=== PATIENT | female | born 1995 | race Caucasian/White ===

== ENCOUNTER 2017-07-17 22:51 | Inpatient (IN) | payer BC, OTHER ==
[~2017-07-17] VITALS: Ht 175.3 cm; Wt 74.6 kg
[2017-07-17 23:31] LABS: HEMATOCRIT 39.2 % (37-47); MEAN CORPUSCULAR HEMOGLOBIN 30.4 pg (25-34); MEAN CORPUSCULAR HGB CONC 33.4 g/dl (32-36); MEAN PLATELET VOLUME 9.2 fL (7.4-10.4); PLATELET COUNT 306 K/uL (130-400); RED BLOOD COUNT 4.31 M/uL (4.2-5.4); WHITE BLOOD COUNT 5.71 K/uL (4.8-10.8)
[2017-07-17 23:32] LABS: URINE APPEARANCE CLEAR (CLEAR); URINE BILIRUBIN NEG (NEG); URINE COLOR YELLOW; URINE NITRITE NEG (NEG); URINE SPECIFIC GRAVITY 1.027 (1.000-1.030); UROBILINOGEN NEG (NEG)
[2017-07-17 23:36] LABS: MANUAL MICROSCOPIC REQUIRED? NO; REVIEW REQ? NO
[2017-07-17 23:49] LABS: ALT/SGPT 15 U/L (12-78); BLOOD UREA NITROGEN 10 mg/dl (7-18); BUN/CREATININE RATIO 10.8 (10-20); CALCIUM 8.1 mg/dl (8.5-10.1); CARBON DIOXIDE 25 mmol/L (21-32); CHLORIDE 107 mmol/L (98-107); CREATININE 0.94 mg/dl (0.60-1.20); GLUCOSE 81 mg/dl (70-99); POTASSIUM 3.5 mmol/L (3.5-5.1); SODIUM 139 mmol/L (136-145)
[2017-07-18] LABS: ALKALINE PHOSPHATASE 48 U/L (45-117); AST/SGOT 17 U/L (15-37)
[2017-07-18 00:03] LABS: BENZODIAZEPINE, URINE NEG (NEG); COCAINE,URINE NEG (NEG); PHENCYCLIDINE, URINE NEG (NEG)
[2017-07-18 00:06] LABS: ACETAMINOPHEN 4 ug/ml (10-30)
[2017-07-18] MEDS ORDERED: VENL75CA73 PO (00:26)
[2017-07-18] MEDS ORDERED: OMEP40CA41 PO (00:26)
[2017-07-18] MEDS ORDERED: B-COTAB18 PO (00:28)
[2017-07-18] MEDS ORDERED: LEVOTAB6 PO (00:28)
[2017-07-18] MEDS ORDERED: TRAZ50TA35 PO (00:29)
[2017-07-18] MEDS ORDERED: ONDA4TAB46 PO (00:29)
[2017-07-18] MEDS ORDERED: FRCT/ PO ×2 (00:29)
--- NOTE | 2017-07-18 00:37 | EMERGENCY ROOM VISIT NOTE ---
History Report prepared by Joie: Megan Noguera Under the Supervision of: Dr. Liberty Wells D.O. First contact with patient: 23:07 Chief Complaint: PSYCHIATRIC PROBLEMS Stated Complaint: TYLENOL OVERDOSE,NAUSEA,ABD PAIN,CONFUSION,SHAKING History of Present Illness The patient is a 22 year old female who presents to the Emergency Room with complaints of an episode of overdose around 1600 today. The patient admits to taking eleven 500 mg Tylenol around 1600 today. She states she was feeling upset at the time and was just hoping to go to sleep. She has been worried about rent money and being a bother to her boyfriend. She had some abdominal pain after the overdose which has resolved. She is currently nauseous. She denies any leg cramping or swelling. She denies any alcohol or other drug use. She also notes she has been taking Tylenol regularly. She took 3000 mg 5 days ago for the worst headache she has ever had. She was recently prescribed Fioricet. She has been taking 2000 mg of Tylenol regularly. She has a history of depression. She has cut herself in the past. She cut herself 2 days ago. She denies any previous attempts at killing herself. She has not had inpatient psychiatric care before. Her last menstrual period was 3 months ago. She is on Seasonique. She has a history of duodenal stenosis. She is on omeprazole. She lives locally and works as a [employer]. She lives with a roommate. Source of History: patient Onset: 1600 today Position: other (global) Symptom Intensity: 5500 mg Tylenol Quality: other (overdose) Timing: other (episodic) Associated Symptoms: + nausea, + abdominal pain (resolved) Note: Pt denies leg cramping/swelling. Review of Systems See HPI for pertinent positives & negatives. A total of 10 systems reviewed and were otherwise negative. Past Medical & Surgical Medical Problems: (1) Depression (2) Duodenal stenosis (3) Major depressive disorder, recurrent episode, severe with anxious distress Family History No pertinent family history stated. Social History Smoking Status: Never Smoker Alcohol Use: none Drug Use: none Marital Status: in relationship Housing Status: lives with roommate Occupation Status: employed Current/Historical Medications Scheduled B-Complex Vitamins (Vitamin B Complex), 1 TAB PO DAILY Levonorgestrel-Ethinyl Estradi (Seasonique), 1 TAB PO DAILY Omeprazole (Prilosec), 40 MG PO DAILY Trazodone Hcl (Trazodone), 50-100 MG PO HS Venlafaxine Hcl (Venlafaxine Extended Rel), 150 MG PO DAILY Scheduled PRN Acetamin/Butalbital/Caffeine (Fioricet), 1 TAB PO Q4 PRN for Headache Acetamin/Butalbital/Caffeine (Fioricet), 2 TAB PO Q6 PRN for Headache Ondansetron Hcl (Zofran), 4 MG PO Q8 PRN for Nausea Allergies Coded Allergies: No Known Allergies (Unverified , 07/18/17) Physical Exam Vital Signs Date Time Temp Pulse Resp B/P (MAP) Pulse Ox O2 Delivery O2 Flow Rate FiO2 07/17/17 23:02 36.8 80 18 145/96 96 Room Air Physical Exam HEENT: Head - normocephalic and atraumatic Pupils are equal, round, and reactive to light. Extraocular eye muscles are intact, and sclera are anicteric. Nose - moist nasal mucosa without discharge. Mouth - moist buccal mucosa. Oropharynx is nonerythematous and there is no tonsillar exudate or edema noted. Neck: Supple; no JVD, nuchal rigidity, cervical lymphadenopathy. Heart: Regular rate and rhythm. There is a normal S1 and S2 with no murmurs, clicks, or gallops appreciated. Lungs: Clear to auscultation bilaterally with no wheezes, rales, or rhonchi. Abdomen: Soft, completely nontender, nondistended, with good bowel sounds. There are no palpable pulsatile masses or hepatosplenomegaly. There is no guarding, rigidity, or rebound noted. Extremities: No evidence of cyanosis, clubbing, or edema. There are easily palpable peripheral pulses. Skin: Pale. Warm and dry with good turgor and no rashes. Psych: Appears depressed, slightly anxious. Admits to self mutilation and overdose. Medical Decision & Procedures Laboratory Results 07/17/17 23:23 07/17/17 23:23 Test 07/17/17 23:10 07/17/17 23:23 Urine Color YELLOW Urine Appearance CLEAR (CLEAR) Urine pH 7.0 (4.5-7.5) Urine Specific [place] 1.027 (1.000-1.030) Urine Protein NEG (NEG) Urine Glucose (UA) NEG (NEG) Urine Ketones NEG (NEG) Urine Occult Blood NEG (NEG) Urine Nitrite NEG (NEG) Urine Bilirubin NEG (NEG) Urine Urobilinogen NEG (NEG) Urine Leukocyte Esterase NEG (NEG) Urine Test NEG (NEG) Urine Opiates Screen NEG (NEG) Urine Methadone, Qualitative NEG (NEG) Urine Barbiturates POS (NEG) Urine Phencyclidine (PCP) Level NEG (NEG) Ur Amphetamine/Methamphetamine NEG (NEG) MDMA (Ecstasy) Screen NEG (NEG) Urine Benzodiazepines Screen NEG (NEG) Urine Cocaine Metabolite NEG (NEG) Urine Marijuana (THC) NEG (NEG) Red Blood Count 4.31 M/uL (4.2-5.4) Mean Corpuscular Volume 91.0 fL (80-100) Mean Corpuscular Hemoglobin 30.4 pg (25-34) Mean Corpuscular Hemoglobin Concent 33.4 g/dl (32-36) RDW Standard Deviation 42.9 fL (36.4-46.3) RDW Coefficient of Variation 12.9 % (11.5-14.5) Mean Platelet Volume 9.2 fL (7.4-10.4) Anion Gap 7.0 mmol/L (3-11) Est Creatinine Clear Calc Drug Dose 97.3 ml/min Estimated GFR () 99.1 Estimated GFR (Non- 85.5 BUN/Creatinine Ratio 10.8 (10-20) Calcium Level 8.1 mg/dl (8.5-10.1) Total Bilirubin 0.2 mg/dl (0.2-1) Direct Bilirubin < 0.1 mg/dl (0-0.2) Aspartate Amino Transf (AST/SGOT) 17 U/L (15-37) Alanine Aminotransferase (ALT/SGPT) 15 U/L (12-78) Alkaline Phosphatase 48 U/L (45-117) Total Protein 7.4 gm/dl (6.4-8.2) Albumin 3.9 gm/dl (3.4-5.0) Thyroid Stimulating Hormone (TSH) 3.090 uIu/ml (0.300-4.500) Salicylates Level < 1.7 mg/dl (2.8-20) Ethyl Alcohol mg/dL < 3.0 mg/dl (0-3) Laboratory results per my review. ED Course 2325: The patient was evaluated in room A5. A complete history and physical examination were performed. Nursing notes and previous electronic medical records were reviewed. Labs were drawn as above. A urine specimen was obtained. 0050: The patient is resting comfortably at this time. The dependency case manager speaking with the patient. 0130: The patient was evaluate a by staff from [address]. 0201: The patient has been accepted to [address] [place] [address]. She is voluntary. Medical Decision The patient is a 22 year old female who presents to the ED with overdose. Differential diagnosis includes depression, suicide attempt, Tylenol overdose, mood disorder. Labs: normal renal function and glucose, normal LFTs and TSH, negative alcohol, aspirin <1.7, acetaminophen 4, tox screen positive for barbiturates, normal white count, stable H&H, urine negative, urinalysis normal. This is a 22-year-old female patient with a history of depression and self mutilation. She explains that she took an overdose tonight because she was upset and was hoping that she would just go to sleep. I was concern for this type of behavior. The patient is willing to admit herself voluntarily for inpatient psychiatric care. As for the Tylenol overdose. The patient had been taking Tylenol on a daily basis and therapeutic dose. However, today, she took an increased dose which does not appear to be toxic at this time. Her Tylenol level was 4 greater than 8 hours after the ingestion. Medication Reconcilliation Current Medication List: was personally reviewed by me Blood Pressure Screening Patient's blood pressure: Elevated blood pressure Blood pressure disposition: Elevated BP felt to be situational Impression Primary Impression: Tylenol overdose Additional Impression: Suicide attempt Scribe Attestation The scribe's documentation has been prepared under my direction and personally reviewed by me in its entirety. I confirm that the note above accurately reflects all work, treatment, procedures, and medical decision making performed by me. Departure Information Dispostion Mental Health Acute Care Referrals Mira Dubon (PCP) Patient Instructions My [facility] Problem Qualifiers Primary Impression: Tylenol overdose Encounter type: initial encounter Injury intent: intentional self-harm Qualified Codes: T39.1X2A - Poisoning by 4-aminophenol derivatives, intentional self-harm, initial encounter
[2017-07-18] MEDS ORDERED: NURSING VERBAL MED ORDER ONE ×2 (01:15→23:00)
[2017-07-18 01:48] VITALS: BP 145/96; PULSE 82; TEMP 36.8
[2017-07-18 02:13] VITALS: O2SAT 100
[2017-07-18] MEDS ORDERED: ACETAMINOPHEN 325 MG TAB PO PRN (02:45)
[2017-07-18] MEDS ORDERED: MAGNESIUM HYDROXIDE SUSP 30 ML UDC PO PRN (02:45)
[2017-07-18] MEDS ORDERED: ALUMINUM/MAGNESIUM SUSP 30 ML UDC PO PRN (02:45)
[2017-07-18] MEDS ORDERED: SODIUM CHLORIDE 0.65% NA SOLN 45 ML (OCEAN) PRN (02:45)
[2017-07-18] MEDS ORDERED: BISMUTH SUBSALICYLATE PER ML OMNICELL CHARGE PO PRN (02:45)
[2017-07-18] MEDS ORDERED: hydrOXYzine HCL 25 MG TAB PO PRN ×2 (02:45)
[2017-07-18] MEDS: TRAZODONE HCL 50 MG TAB PO SCH ×2 (02:51→21:18)
[2017-07-18 04:09] VITALS: Ht 175.3 cm; Wt 74.6 kg
[2017-07-18 06:50] VITALS: BP_SYST 115; BP_SYST 121; BP_DIAS 75; BP_DIAS 87; PULSE 74; PULSE 99; TEMP 37
[2017-07-18] MEDS ORDERED: VENLAFAXINE HCL XR 150 MG CAPXR PO SCH (09:00)
--- NOTE | 2017-07-18 11:04 | Psychiatric History & Physical ---
History Date of Service Jul 18, 2017. Identifying Data Brenna Julien is a 22-year-old female who currently lives in [facility], who was brought to the emergency room by her roommate yesterday after ingesting 11 500 mg Tylenol pills. She admits to depression and suicidal ideation. She is admitted voluntarily. Information is gathered from the patient and considered to be reliable. Chief Complaint "I just wanted to numb myself.". History of Present Illness Nancy Godinez MS3 is present for the interview. The patient believes she has been depressed since she was a child with a significant worsening during her sophomore year in college. She denies any specific precipitant to the word sitting in college other than to say that her schoolwork was difficult and she had very few friends. She did not receive treatment for her depression until August of this year when she went to her PCP, Dr. Mira Dubon, who initially tried her on Zoloft. She was on this for several months, but didn't think it helped and thinks it may have increased suicidal ideation. She then traveled her on Lexapro for about 1 month up to a dose of 15 mg which the patient thought worsened her anxiety. She was then tried on Effexor which she has been on for the last several weeks at 150 mg in the patient believes that she is experiencing an affective blunting which she does not like. 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 She graduated in December with a degree in geology. She has had some work stress, other primary pharmacist having been out for surgery requiring temporary help. She also has financial stress from school bills. Her stressors have been piling up and now the holiday season approaches. Her parents are depressed, she doesn't feel particularly close to either and doesn' t necessarily want to go home for the holidays. She has been cutting more regularly with last event 2 days ago, having cut on both of her thighs and her left wrist. Yesterday when she felt like things were piling up, she took the 11th 500 mg Tylenol, denying that she wanted to but saying that she just wanted to "numb myself". At the same time, she has been having suicidal thoughts, but denies any specific plan or intent. After taking the overdose, she tried to induce vomiting with little effect. She then had her roommate bring her to the ER. Today she continues to experience depression but denies any acute suicidal ideation. She reports chronic anxiety with a history of panic attacks that are usually triggered by stress at work. She reports a good appetite, stable weight. She has not been socializing as much lately as she normally would. She is sleeping more, getting 8-10 hours per night but still feeling fatigued and not rested during the day. She has low motivation but does get to work on a daily basis. She has interest in her friends and her boyfriend. She denies ever having had any auditory or visual hallucinations. She denies any discrete episodes of euphoric mood, sleeplessness or pleasure seeking behaviors that would be congruent with a bipolar disorder. She denies any symptoms of eating disordered behaviors. Past Psychiatric History Current OP Treatment: no current treatment (meds from PCP) Prior OP Treatment: no prior treatment Prior Psych Hospitalizations: none Access to a Gun: No Suicide Attempts: No Past Medication Trials 1. Zoloft- not helpful, increased SI 2. Lexapro- increased anxiety Past Medical/Surgical History History of Concussion/Seizure: No (1) Duodenal stenosis Allergies Allergies: Coded Allergies: No Known Allergies (Unverified , 07/18/17) Home Medications Scheduled B-Complex Vitamins (Vitamin B Complex), 1 TAB PO DAILY Levonorgestrel-Ethinyl Estradi (Seasonique), 1 TAB PO DAILY Omeprazole (Prilosec), 40 MG PO DAILY Trazodone Hcl (Trazodone), 50-100 MG PO HS Venlafaxine Hcl (Venlafaxine Extended Rel), 150 MG PO DAILY Scheduled PRN Acetamin/Butalbital/Caffeine (Fioricet), 1 TAB PO Q4 PRN for Headache Acetamin/Butalbital/Caffeine (Fioricet), 2 TAB PO Q6 PRN for Headache Ondansetron Hcl (Zofran), 4 MG PO Q8 PRN for Nausea Family History History of Suicide: No History of Substance Abuse: No Psychiatric History: Yes (uncle with schizophrenia, sister with depression and anxiety) Alcohol Use Alcohol Use In Past 12 Months: No AUDIT Total Score: 1 Smoking Use Smoking Status: Never Smoker Substance History Denies the use of illicit substances Personal History [place] Childhood: Grew up in [place]. Raised by mother and father until they . She has 2 sisters. 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 Relationship History: never , other (has been with her current boyfriend for 3 months) Children: none Spiritual Affiliation: none Legal History: none Psychological Trauma History: Denies Hx Traumatic Event Review of Systems Constitutional: malaise Eyes: denies: no symptoms, as stated in HPI, eye pain, tearing, itching, redness, discharge, double vision, visual changes, blurred vision, photophobia, other ENT: denies: no symptoms reported, see HPI, ear pain, ear discharge, loss of hearing, tinnitus, nasal pain, nasal congestion, rhinorrhea, epistaxis, sore throat, stidor, throat swelling, mouth pain, mouth swelling, dental pain, gum swelling, other Cardiovascular: denies: no symptoms reported, see HPI, chest pain, chest tightness, chest pressure, diaphoresis, palpitations, syncope, other Respiratory: denies: no symptoms reported, see HPI, cough, orthopnea, short of breath, stridor, wheezing, sputum production, cyanosis, MEEKS, PND, other Gastrointestinal: constipation (associated with duodenal stenosis), nausea ( with headaches) Genitourinary - Female: denies: no symptoms, see HPI, rash, amenorrhea, dysmenorrhea, menorrhagia, metrorrhagia, , vaginal bleeding, vaginal itching, vaginal discharge, vulvadynia, other Musculoskeletal: denies no symptoms reported, denies see HPI, denies back pain , denies gout, denies joint pain, denies joint swelling, denies muscle pain, denies muscle stiffness, denies neck pain, denies other Integumentary: other (multiple superficial cuts to left wrist and bilateral dorsal thighs) Neurologic: denies: no symptoms, see HPI, headache, numbness, paresthesias, pre -existing deficit, seizure, tingling, tremors, general weakness, tics, focal weakness, vertigo, lethargy, memory loss, dizziness, other Endocrine: denies: no symptoms, as stated in HPI, cold intolerance, heat intolerance, hair changes, goiter, polydipsia, polyuria, skin changes, other Hematologic / Lymphatic: denies: no symptoms, as stated in HPI, abnormal clotting, adenopathy, anemia, easy bleeding, easy bruising, gums bleeding, petechiae, other Examination Physical Examination Exam performed by Dr. Skinner in the emergency department yesterday has been reviewed and accepted his medical clearance for our unit Vital Signs Vital Signs Past 12 Hours Date Time Temp Pulse Resp B/P (MAP) Pulse Ox O2 Delivery O2 Flow Rate FiO2 07/18/17 06:50 37.0 74 16 115/75 99 121/87 07/18/17 02:13 62 137/93 100 07/18/17 01:48 36.8 82 18 145/96 07/17/17 23:02 36.8 80 18 145/96 96 Room Air Laboratory Results Last 24 Hours Test 07/17/17 23:10 07/17/17 23:23 07/18/17 08:56 Urine Color YELLOW Urine Appearance CLEAR Urine pH 7.0 Urine Specific [place] 1.027 Urine Protein NEG Urine Glucose (UA) NEG Urine Ketones NEG Urine Occult Blood NEG Urine Nitrite NEG Urine Bilirubin NEG Urine Urobilinogen NEG Urine Leukocyte Esterase NEG Urine Test NEG Urine Opiates Screen NEG Urine Methadone, Qualitative NEG Urine Barbiturates POS Urine Phencyclidine (PCP) Level NEG Ur Amphetamine/Methamphetamine NEG MDMA (Ecstasy) Screen NEG Urine Benzodiazepines Screen NEG Urine Cocaine Metabolite NEG Urine Marijuana (THC) NEG White Blood Count 5.71 K/uL Red Blood Count 4.31 M/uL Hemoglobin 13.1 g/dL Hematocrit 39.2 % Mean Corpuscular Volume 91.0 fL Mean Corpuscular Hemoglobin 30.4 pg Mean Corpuscular Hemoglobin Concent 33.4 g/dl RDW Standard Deviation 42.9 fL RDW Coefficient of Variation 12.9 % Platelet Count 306 K/uL Mean Platelet Volume 9.2 fL Sodium Level 139 mmol/L Potassium Level 3.5 mmol/L Chloride Level 107 mmol/L Carbon Dioxide Level 25 mmol/L Anion Gap 7.0 mmol/L Blood Urea Nitrogen 10 mg/dl Creatinine 0.94 mg/dl Est Creatinine Clear Calc Drug Dose 97.3 ml/min Estimated GFR () 99.1 Estimated GFR (Non- 85.5 BUN/Creatinine Ratio 10.8 Random Glucose 81 mg/dl Calcium Level 8.1 mg/dl Total Bilirubin 0.2 mg/dl Direct Bilirubin < 0.1 mg/dl Aspartate Amino Transf (AST/SGOT) 17 U/L Alanine Aminotransferase (ALT/SGPT) 15 U/L Alkaline Phosphatase 48 U/L Total Protein 7.4 gm/dl Albumin 3.9 gm/dl Thyroid Stimulating Hormone (TSH) 3.090 uIu/ml Salicylates Level < 1.7 mg/dl Acetaminophen Level 4 ug/ml < 2 ug/ml Ethyl Alcohol mg/dL < 3.0 mg/dl Mental Examination During interview pt is: alert and oriented, cooperative (he) Appearance: appropriately dressed, appropriately groomed Eye contact is: good Motor behavior is: steady gait & station, no abnormal motor movements Speech: normal in rate, rhythm & volume Affect: depressed, tearful Mood is: depressed Thought process: goal directed Thought content: reality based without delusions Suicidal thought are: present, Plan: denied, Intent: denied Homicidal thoughts are: denied Hallucinations: denies auditory, denies visual Cognition: memory grossly intact, attention grossly intact, language grossly intact Intelligence estimated to be: average Insight: excellent, impaired Judgement: impaired Impression / Recommendations Impression 22-year-old woman with severe depression admitted voluntarily after toxic ingestion of 5500 mg of Tylenol. No apparent impact on her liver and did not require acetylcysteine. She has some generalized stress but no acute stressor precipitating this, just wanting to feel numb from her emotional pain. It sounds as if her trial of Zoloft was good but her Lexapro was short, only a month and only at 15 mg. She doesn't like the affect of blunting on the Effexor and so we'll likely not take it. We've discussed multiple options and the patient has chosen to proceed with tapering off of Effexor and starting a trial of Prozac 20 mg today increasing as tolerated. Risks, benefits and alternatives reviewed and accepted including the black box warning. We will refer her to both a psychiatric prescriber and therapist post discharge. We will assist her to learn and utilize additional healthy coping strategies to reduce her reliance on cutting. At this time, the patient requires inpatient mental health treatment due to the severity of her condition and the risk for self-harm if discharged. Inventory Assets Strengths: Steady job, housing, good relationship with boyfriend Needs: To learn healthy coping strategies Risk Factors Assessment : Yes /single/: Yes Higher / Fall in social status: No Access to guns: No Health problems: Yes Mental Health Diagnoses: Yes Substance use disorders: No Previous attempt: No Previous psychiatric stay: No Hopelessness: No Smoker: No Protective Factors Assessment Restorationism beliefs: No : No Responsible for young children: No Employed: Yes Stable relationships: Yes Recommendations (1) Major depressive disorder, recurrent episode, severe with anxious distress 07/18 - Taper Effexor to 75 mg starting tomorrow and continue taper as tolerated - Start Prozac 20 mg today increasing as tolerated - Assist the patient to learn and utilize healthy coping strategies to reduce reliance on cutting - Encourage participation in group and individual counseling - Every 15 minute checks for safety - Family meeting as indicated - Will need psychiatric follow-up for both medications and therapy Dr. Ani Kimble personally participated in the review of development of the above treatment plan. CPT Code Initial Hospital Care: 45573
--- NOTE | 2017-07-18 11:23 | Medical Student: BHU Only ---
Psychiatric Evaluation Date of Service: Jul 18, 2017. History Date of Service Jul 18, 2017. Identifying Data Brenna Julien is a 22-year-old female who currently lives in [place] with her roommate/good friend Katey, who brought her to the ED yesterday. Brenna Julien was admitted on a 201 voluntary commitment. Patient is admitted from home. Information provided by the patient is considered to be reliable. Chief Complaint "I took 11 Tylenol to numb my pain". History of Present Illness Brenna is a 22 year-old female with a history of major depressive disorder with SIB and generalized anxiety disorder who presented to the ED yesterday (07/17) after taking 11 500 mg Tylenol. Her roommate/good friend brought her in. She said that she took the Tylenol to "numb my pain" and that she "just wanted to sleep" but did not have any intent to kill herself. She states that she has been worried about finances, specifically paying rent and student loans, and that she has felt like she is a burden to her boyfriend and is "inadequate." She also feels distant from her family, who live in [facility] and who she has not seen in about a year. 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 Brenna said that she thinks of these things seemed to pile on yesterday which led to her taking the Tylenol (which she now feels was reckless and impulsive"). She has had thoughts of suicide for several years intermittently, wondering what would happen if she "wasn't here anymore," but she has never had a plan or intent to follow through with this. She was officially diagnosed with depression by her PCP in August 2016 and was started on sertraline at that time. She is now on Effexor 150 mg after several failed trials of SSRIs (see above). Brenna also has a history of SIB, involving cutting her wrists and/or upper thighs , that began when she was younger but has gotten progressively more frequent over the last three years, from every few months to every few weeks. The last time she cut was 07/15. Patient says she feels the urge to cut whenever she gets stressed but never has intended to commit suicide or hurt herself by doing this. Patient states that today her mood is "ok" and is "6/10". She denies thoughts of suicide or HI. She feels somewhat anxious and attributes this to missing work while she is in the hospital. Her appetite has been "good", and she ate all of her breakfast this morning. No change in weight. Concentration has been "ok" and is "worse when I'm tired or anxious at work". SLeep has been "ok"; she was prescribed trazadone 50 mg by her PCP and uses it almost every night, which has helped. She gets 8-10 hours of sleep a night and wakes up 1-2 times "on a good night." Recently she has felt much mroe tired and has gone to bed after work almost immediately. She has not seen her friends as often as she usually does because of this. She has had headaches almost every day, including today's which is "7/10". Her PCP gave her a prescription for Fioricet for these, though she does not have an official diagnosis of migraines. She feels dizzy and nauseated when she has a headache. Denies racing thoughts/euphoria, hallucinations, SI/HI. Denies shortness of breath, vomiting, numbness/tingling, pain. Past Psychiatric History Current OP Treatment: therapist (Billie; stopped going several months ago because she "didn't want to") Prior Psych Hospitalizations: none Access to a Gun: No Suicide Attempts: No Past Medication Trials -Sertraline - increased suicidal thoughts; patient felt it didn't improve depression -Lexapro - increased patient's anxiety; was only on this for 1 month Past Medical/Surgical History History of Concussion/Seizure: No (1) Depression (2) Tylenol overdose (3) Suicide attempt (4) Duodenal stenosis Allergies Allergies: Coded Allergies: No Known Allergies (Unverified , 07/18/17) Home Medications Scheduled B-Complex Vitamins (Vitamin B Complex), 1 TAB PO DAILY Levonorgestrel-Ethinyl Estradi (Seasonique), 1 TAB PO DAILY Omeprazole (Prilosec), 40 MG PO DAILY Trazodone Hcl (Trazodone), 50-100 MG PO HS Venlafaxine Hcl (Venlafaxine Extended Rel), 150 MG PO DAILY Scheduled PRN Acetamin/Butalbital/Caffeine (Fioricet), 1 TAB PO Q4 PRN for Headache Acetamin/Butalbital/Caffeine (Fioricet), 2 TAB PO Q6 PRN for Headache Ondansetron Hcl (Zofran), 4 MG PO Q8 PRN for Nausea Family History History of Suicide: No History of Substance Abuse: No Psychiatric History: Yes -History of depression when younger, worsened in college due to "stress and lack of friends"; began medication trials with PCP in August 2016 (sertraline, Lexapro, Effexor) -History of SIB - cutting wrists/legs that started when younger but has been more frequent since college; was every few months, has progressed to every few weeks; last time was Sunday 07/15 Alcohol Use Alcohol Use In Past 12 Months: No AUDIT Total Score: 1 Smoking Use Smoking Status: Never Smoker Personal History Education: graduated college (geology major) Relationship History: other (boyfriend of 3 months) Children: none Spiritual Affiliation: none Legal History: none Psychological Trauma History: Denies Hx Traumatic Event Review of Systems Constitutional: denies fever, denies weakness Cardiovascular: denies: chest pain, palpitations Respiratory: denies: cough, short of breath Gastrointestinal: denies abdominal pain, constipation (chronic), nausea, denies vomiting Musculoskeletal: no symptoms reported Neurologic: reports: headache, denies: numbness, tingling Examination Physical Examination A physical exam was performed in the ER prior to admission to the unit by Dr. Wells. I accept that physical as correct/medical clearance for the inpatient physical exam. Vital Signs Vital Signs Past 12 Hours Date Time Temp Pulse Resp B/P (MAP) Pulse Ox O2 Delivery O2 Flow Rate FiO2 07/18/17 06:50 37.0 74 16 115/75 99 121/87 07/18/17 02:13 62 137/93 100 07/18/17 01:48 36.8 82 18 145/96 07/17/17 23:02 36.8 80 18 145/96 96 Room Air Laboratory Results Last 24 Hours Test 07/17/17 23:10 07/17/17 23:23 07/18/17 08:56 Urine Color YELLOW Urine Appearance CLEAR Urine pH 7.0 Urine Specific [place] 1.027 Urine Protein NEG Urine Glucose (UA) NEG Urine Ketones NEG Urine Occult Blood NEG Urine Nitrite NEG Urine Bilirubin NEG Urine Urobilinogen NEG Urine Leukocyte Esterase NEG Urine Test NEG Urine Opiates Screen NEG Urine Methadone, Qualitative NEG Urine Barbiturates POS Urine Phencyclidine (PCP) Level NEG Ur Amphetamine/Methamphetamine NEG MDMA (Ecstasy) Screen NEG Urine Benzodiazepines Screen NEG Urine Cocaine Metabolite NEG Urine Marijuana (THC) NEG White Blood Count 5.71 K/uL Red Blood Count 4.31 M/uL Hemoglobin 13.1 g/dL Hematocrit 39.2 % Mean Corpuscular Volume 91.0 fL Mean Corpuscular Hemoglobin 30.4 pg Mean Corpuscular Hemoglobin Concent 33.4 g/dl RDW Standard Deviation 42.9 fL RDW Coefficient of Variation 12.9 % Platelet Count 306 K/uL Mean Platelet Volume 9.2 fL Sodium Level 139 mmol/L Potassium Level 3.5 mmol/L Chloride Level 107 mmol/L Carbon Dioxide Level 25 mmol/L Anion Gap 7.0 mmol/L Blood Urea Nitrogen 10 mg/dl Creatinine 0.94 mg/dl Est Creatinine Clear Calc Drug Dose 97.3 ml/min Estimated GFR () 99.1 Estimated GFR (Non- 85.5 BUN/Creatinine Ratio 10.8 Random Glucose 81 mg/dl Calcium Level 8.1 mg/dl Total Bilirubin 0.2 mg/dl Direct Bilirubin < 0.1 mg/dl Aspartate Amino Transf (AST/SGOT) 17 U/L Alanine Aminotransferase (ALT/SGPT) 15 U/L Alkaline Phosphatase 48 U/L Total Protein 7.4 gm/dl Albumin 3.9 gm/dl Thyroid Stimulating Hormone (TSH) 3.090 uIu/ml Salicylates Level < 1.7 mg/dl Acetaminophen Level 4 ug/ml < 2 ug/ml Ethyl Alcohol mg/dL < 3.0 mg/dl Mental Examination During interview pt is: alert and oriented, cooperative Appearance: appropriately dressed Eye contact is: fair Motor behavior is: steady gait & station, no abnormal motor movements Speech: normal in rate, rhythm & volume Affect: blunted Mood is: depressed, anxious Thought process: goal directed Thought content: reality based without delusions Suicidal thought are: denied, Plan: denied Homicidal thoughts are: denied Hallucinations: denies auditory, denies visual Cognition: memory grossly intact, attention grossly intact Intelligence estimated to be: above average Insight: fair Judgement: fair Impression / Recommendations Impression This is a 22-year-old female with a history of depression, SIB, and anxiety who presented to the ED yesterday after taking 11 500mg Tylenol to "numb the pain." Patient denies that it was a suicide attempt and states that today she has no SI /HI or urges to harm herself. She is currently taking Effexor 150 mg which is prescribed by her PCP at [facility]. She states that it blunts her mood and would like to change medication. DDx includes MDD, SIB, anxiety, overdose, other mood disorder. Inventory Assets Strengths: Stable living situation, significant other, full-time job, no hx of substance abuse, no hx of suicide attempt Needs: No psychiatrist, no current therapist Risk Factors Assessment : Yes /single/: No Higher / Fall in social status: No Access to guns: No Health problems: No Mental Health Diagnoses: Yes Substance use disorders: No Previous attempt: No Previous attempt;highly lethal: No Previous attempt; planned: No Previous attempt; didn't tell: No Family history of suicide: No Previous psychiatric stay: No Hopelessness: No Smoker: No Protective Factors Assessment Yazdanism beliefs: No : No Responsible for young children: No Employed: Yes Stable relationships: Yes Recommendations (1) Major depressive disorder, recurrent episode, severe with anxious distress -Taper Effexor starting tomorrow (down to 75 mg dose) due to unwanted side effects (blunted mood) -Start Prozac 20 mg -Will consider adding Wellbutrin as outpatient if Prozac is not adequately controlling depression symptoms -Consider setting up with outpatient psychiatry -Consider re-enrolling in outpatient therapy (2) Tylenol overdose -Recheck Tylenol levels daily to ensure downward trend -Recheck LFTs -Hold Tylenol and Fioricet for headaches; consider non-medical treatment ( icepack, heat, dark room etc.) (3) Suicide attempt -Monitor q15 minutes per [facility] protocol -Encourage participation in groups while on U floor -Maintain status on locked unit until discharge CPT Code Initial Hospital Care: 32267
[2017-07-18] MEDS ORDERED: FLUOXETINE HCL 20 MG CAP PO ONE (11:30)
[2017-07-18] MEDS ORDERED: SUMATRIPTAN SUCCINATE 25 MG TAB PO ONE (11:30)
[2017-07-18] MEDS: ONDANSETRON 4MG OD TAB PO PRN (12:33)
[2017-07-18] MEDS ORDERED: SUMATRIPTAN SUCCINATE 50 MG TAB PO ONE (13:30)
[2017-07-19] MEDS: TRAZODONE HCL 50 MG TAB PO SCH ×3 (00:11→23:06)
[2017-07-19] MEDS: ONDANSETRON 4MG OD TAB PO PRN ×3 (00:12→17:30)
[2017-07-19] MEDS ORDERED: NURSING VERBAL MED ORDER ONE (00:15)
[2017-07-19] MEDS ORDERED: OXYCODONE HCL IR 5 MG TAB (IMMEDIATE RELEASE) PO ONE ×2 (00:30→13:30)
[2017-07-19 07:02] VITALS: BP_SYST 108; BP_SYST 112; BP_DIAS 73; BP_DIAS 76; PULSE 65; PULSE 94; TEMP 36.9
[2017-07-19] MEDS: VENLAFAXINE HCL XR 75 MG CAPXR PO SCH (09:01)
[2017-07-19] MEDS: PANTOprazole SOD 40 MG TAB PO SCH (09:01)
[2017-07-19] MEDS: FLUOXETINE HCL 20 MG CAP PO SCH (09:02)
[2017-07-19] MEDS: VITAMIN B COMPLEX TAB PO SCH (09:02)
--- NOTE | 2017-07-19 11:25 | Psychiatric Progress Notes ---
Progress Note Date of Service Jul 19, 2017. Interval History This is a 22-year-old female with a history of depression, SIB, and anxiety who presented to the ED yesterday after taking 11 500mg Tylenol to "numb the pain." in the setting of stress at work, with finances and feeling generally inadequate. Chief Complaint "I feel better. ". Subjective Patient was seen & assessed interval progress reviewed with Treatment Team. Today the patient is adjusting to the unit. She admits that she was feeling scared yesterday, not knowing what to expect, and so submitted her 72 hr notice. Today she is feeling more comfortable after having visit from family and friends. She also has made some decisions about how to proceeed. She has decided to give notice at her work, sublet her apt and move to [place] to live with her father and step mother Criselda. 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 Having a plan has helped to relieve her stress and today denies any SI or thoughts that she wants to numb herself with meds. She continues with complaints of NARAYAN (had prior to admission) rated 7/10 down from 8/ 10 this AM. Cold compress to neck is helping. Has some nausea but denies other complaints. Is Worried about coming off of Effexor in terms of discontinuation syndrome, but willing to proceed. Review of Systems Constitutional: + fatigue ENT: No hearing loss, No unusual epistaxis, No nasal symptoms, No sore throat, No tinnitus, No dental problems, No trouble swallowing, No problem reported Respiratory: No cough, No sputum, No wheezing, No shortness of breath, No dyspnea on exertion, No dyspnea at rest, No hemoptysis, No problem reported Cardiovascular: No chest pain, No orthopnea, No PND, No edema, No claudication , No palpitations, No problem reported Abdomen: No pain, No nausea, No vomiting, No diarrhea, No constipation, No GI bleeding, No problem reported Musculoskeletal: No joint pain, No muscle pain, No swelling, No calf pain, No problem reported Neurologic: + problem reported (NARAYAN) Psychiatric: + depression symptoms Integumentary: + problem reported (superficial lacs to lt wrist and bilateral dorsal thighs) Sleep Information Total Hours of Sleep: 7.75 Meal Information Percent of Breakfast Consumed: 100 Percent of Lunch Consumed: 25 Percent of Dinner Consumed: 100 Mental Status Exam During interview pt is: alert and oriented, cooperative Appearance: appropriately dressed Eye contact is: good Motor behavior is: steady gait & station, no abnormal motor movements Speech: normal in rate, rhythm & volume Affect: blunted Mood is: depressed, anxious Thought process: goal directed Thought content: reality based without delusions Suicidal thought are: denied, Plan: denied Homicidal thoughts are: denied Hallucinations: denies auditory, denies visual Cognition: memory grossly intact, attention grossly intact Intelligence estimated to be: above average Insight: fair Judgement: fair Impression Difficult first day, but now adjusting. Has submitted 72 hr notice which will be up on 07/21. Has a plan to leave job and move home in 3 weeks and is relieved to be doing so. Still wants to be discharged by 07/21 feeling able to get home and move forward with her plan. My concern is that she have a solid safety plan in place for the 3 weeks she will remain locally, and that she has psych providers in place in [place] to assume her care promptly. Will make no changes to meds, continuing Effexor XR 75 mg. and prozac 20 mg. for now so as not to risk DC symptoms that could aggravate her chronic HAs. Cross taper will continue likely as an OP Plan (1) Major depressive disorder, recurrent episode, severe with anxious distress 07/18 - Taper Effexor to 75 mg starting tomorrow and continue taper as tolerated - Start Prozac 20 mg today increasing as tolerated - Assist the patient to learn and utilize healthy coping strategies to reduce reliance on cutting - Encourage participation in group and individual counseling - Every 15 minute checks for safety - Family meeting as indicated - Will need psychiatric follow-up for both medications and therapy 07/19 - Continue current meds - Focus on safety plan for immediate future - Will need providers in the [place] area Dr. Ani Kimble personally participated in the review of development of the above treatment plan. Discharge / Aftercare Planning Primary Care Physician: Name: Mira Rodgers [facility] Therapist: Name: None Art Psychotherapist: Name: None Visit Code E&M Code: 35870 Inventory Assets Strengths: Stable living situation, significant other, full-time job, no hx of substance abuse, no hx of suicide attempt Needs: No psychiatrist, no current therapist Risk Factors Assessment : Yes /single/: No Higher / Fall in social status: No Health problems: No Mental Health Diagnoses: Yes Substance use disorders: No Previous attempt: No Previous attempt;highly lethal: No Previous attempt; planned: No Previous attempt; didn't tell: No Family history of suicide: No Previous psychiatric stay: No Hopelessness: No Smoker: No Protective Factors Assessment Pentecostal beliefs: No : No Responsible for young children: No Employed: Yes Stable relationships: Yes Data Vital Signs Last 24 Hrs: Date Time Temp Pulse Resp B/P (MAP) Pulse Ox O2 Delivery O2 Flow Rate FiO2 07/19/17 07:02 36.9 65 18 108/73 94 112/76 Meds Administered Last 24 Hrs: Meds Administered (Past 24Hrs) Medications (Trade) Dose Ordered Sig/Jacob Route Start Time Stop Time Status Last Admin Dose Admin Venlafaxine HCl (effeXOR EXTENDED REL CAP) 150 mg DAILY PO 07/18/17 09:00 07/18/17 11:07 DC 07/18/17 09:23 150 MG Trazodone HCl (Desyrel Tab) 50 mg HS PO 07/18/17 22:00 08/17/17 21:59 07/19/17 00:11 50 MG Venlafaxine HCl (effeXOR EXTENDED REL CAP) 75 mg QAM PO 07/19/17 09:00 08/18/17 08:59 07/19/17 09:01 75 MG Fluoxetine HCl (Prozac Cap) 20 mg QAM PO 07/19/17 09:00 08/18/17 08:59 07/19/17 09:02 20 MG Fluoxetine HCl (Prozac Cap) 20 mg 1130 ONCE PO 07/18/17 11:30 07/18/17 11:31 DC 07/18/17 11:41 20 MG Sumatriptan Succinate (Imitrex Tab) 25 mg ONE ONCE PO 07/18/17 11:30 07/18/17 11:31 DC 07/18/17 11:42 25 MG Ondansetron HCl (Zofran Odt) 4 mg Q4H PRN PO 07/18/17 12:15 08/17/17 12:14 07/19/17 00:12 4 MG Sumatriptan Succinate (Imitrex Tab) 50 mg ONE ONCE PO 07/18/17 13:30 07/18/17 13:31 DC 07/18/17 13:22 50 MG Vitamin B Complex (Vitamin B Complex) 1 tab DAILY PO 07/19/17 09:00 08/18/17 08:59 07/19/17 09:02 1 TAB Pantoprazole Sodium (Protonix Tab) 40 mg QAM PO 07/19/17 09:00 08/18/17 08:59 07/19/17 09:01 40 MG Oxycodone HCl (Roxicodone Immediate Rel Tab) 5 mg NOW ONCE PO 07/19/17 00:30 07/19/17 00:31 DC 07/19/17 00:50 5 MG Lab Results Last 24 Hrs: 07/17/17 23:23 07/17/17 23:23 Test 07/17/17 23:10 07/17/17 23:23 07/18/17 08:56 07/19/17 10:47 Urine Color YELLOW Urine Appearance CLEAR (CLEAR) Urine pH 7.0 (4.5-7.5) Urine Specific [place] 1.027 (1.000-1.030) Urine Protein NEG (NEG) Urine Glucose (UA) NEG (NEG) Urine Ketones NEG (NEG) Urine Occult Blood NEG (NEG) Urine Nitrite NEG (NEG) Urine Bilirubin NEG (NEG) Urine Urobilinogen NEG (NEG) Urine Leukocyte Esterase NEG (NEG) Urine Test NEG (NEG) Urine Opiates Screen NEG (NEG) Urine Methadone, Qualitative NEG (NEG) Urine Barbiturates POS (NEG) Urine Phencyclidine (PCP) Level NEG (NEG) Ur Amphetamine/Methamphetamine NEG (NEG) MDMA (Ecstasy) Screen NEG (NEG) Urine Benzodiazepines Screen NEG (NEG) Urine Cocaine Metabolite NEG (NEG) Urine Marijuana (THC) NEG (NEG) Red Blood Count 4.31 M/uL (4.2-5.4) Mean Corpuscular Volume 91.0 fL (80-100) Mean Corpuscular Hemoglobin 30.4 pg (25-34) Mean Corpuscular Hemoglobin Concent 33.4 g/dl (32-36) RDW Standard Deviation 42.9 fL (36.4-46.3) RDW Coefficient of Variation 12.9 % (11.5-14.5) Mean Platelet Volume 9.2 fL (7.4-10.4) Anion Gap 7.0 mmol/L (3-11) Est Creatinine Clear Calc Drug Dose 97.3 ml/min Estimated GFR () 99.1 Estimated GFR (Non- 85.5 BUN/Creatinine Ratio 10.8 (10-20) Calcium Level 8.1 mg/dl (8.5-10.1) Thyroid Stimulating Hormone (TSH) 3.090 uIu/ml (0.300-4.500) Salicylates Level < 1.7 mg/dl (2.8-20) Ethyl Alcohol mg/dL < 3.0 mg/dl (0-3) Acetaminophen Level < 2 ug/ml (10-30) Last 24 Hours Test 07/19/17 10:47
[2017-07-19 12:19] LABS: ALKALINE PHOSPHATASE 43 U/L (45-117); ALT/SGPT 16 U/L (12-78); AST/SGOT 14 U/L (15-37)
[2017-07-19] MEDS: IBUPROFEN 600 MG TAB PO PRN ×2 (17:22→23:44)
[2017-07-19] MEDS: [UNRECOGNIZED DRUG - OTHER] PO SCH (21:54)
[2017-07-20 07:10] VITALS: BP_SYST 104; BP_SYST 108; BP_DIAS 63; BP_DIAS 67; PULSE 105; PULSE 70; TEMP 36.9
[2017-07-20] MEDS: PANTOprazole SOD 40 MG TAB PO SCH (08:48)
[2017-07-20] MEDS: FLUOXETINE HCL 20 MG CAP PO SCH (08:48)
[2017-07-20] MEDS: VITAMIN B COMPLEX TAB PO SCH (08:48)
[2017-07-20] MEDS: VENLAFAXINE HCL XR 75 MG CAPXR PO SCH (08:48)
[2017-07-20] MEDS: IBUPROFEN 600 MG TAB PO PRN ×2 (08:51→15:53)
--- NOTE | 2017-07-20 19:42 | Psychiatric Progress Notes ---
Progress Note Date of Service Jul 20, 2017. Interval History This is a 22-year-old female with a history of depression, SIB, and anxiety who presented to the ED yesterday after taking 11 500mg Tylenol to "numb the pain." in the setting of stress at work, with finances and feeling generally inadequate. Chief Complaint "I want to go". Subjective Patient was seen & assessed interval progress reviewed with Nursing. Patient reports that she wants to be discharged. She continues to feel uncomfortable on the unit and wants to return back to [place] to live with family. She has signed 72 hour notice. Her mother set up appointment with [facility] on Saturday at 4:00 (they called unit last evening with appointment). Patient tolerating decrease in Effexor XR to 75mg daily and initiating Prozac well and no side/withdrawal effects. Denies any thoughts to harm herself or others. Review of Systems Psych: denies symptoms other than stated above Constitutional: denied Cardiovascular: denied GI: denied Neurologic: denied Remainder of 10 body systems also reviewed and denied other than noted above. Sleep Information Total Hours of Sleep: 5.50 Meal Information Percent of Breakfast Consumed: 100 Percent of Lunch Consumed: 75 Percent of Dinner Consumed: 100 Mental Status Exam During interview pt is: alert and oriented, cooperative Appearance: appropriately dressed Eye contact is: good Motor behavior is: steady gait & station, no abnormal motor movements Speech: normal in rate, rhythm & volume Affect: blunted Mood is: depressed, anxious Thought process: goal directed Thought content: reality based without delusions Suicidal thought are: denied, Plan: denied Homicidal thoughts are: denied Hallucinations: denies auditory, denies visual Cognition: memory grossly intact, attention grossly intact Intelligence estimated to be: above average Insight: fair Judgement: fair Impression Difficult first day, but now adjusting. Has submitted 72 hr notice which will be up on 07/21. Has a plan to leave job and move home in 3 weeks and is relieved to be doing so. Still wants to be discharged by 07/21 feeling able to get home and move forward with her plan. My concern is that she have a solid safety plan in place for the 3 weeks she will remain locally, and that she has psych providers in place in [place] to assume her care promptly. Will make no changes to meds, continuing Effexor XR 75 mg. and prozac 20 mg. for now so as not to risk DC symptoms that could aggravate her chronic HAs. Cross taper will continue likely as an OP Plan (1) Major depressive disorder, recurrent episode, severe with anxious distress 07/18 - Taper Effexor to 75 mg starting tomorrow and continue taper as tolerated - Start Prozac 20 mg today increasing as tolerated - Assist the patient to learn and utilize healthy coping strategies to reduce reliance on cutting - Encourage participation in group and individual counseling - Every 15 minute checks for safety - Family meeting as indicated - Will need psychiatric follow-up for both medications and therapy 07/19 - Continue current meds - Focus on safety plan for immediate future - Will need providers in the [place] area Dr. Ani Kimble personally participated in the review of development of the above treatment plan. Discharge / Aftercare Planning Primary Care Physician: Name: Mira Rodgers [facility] Date of Appointment: Jul 26, 2017 Time of Appointment: 12:15 pm Psychiatrist: Name: [facility] Date of Appointment: Sep 02, 2017 Time of Appointment: 1:00 pm Appointment Notes: Evaluation with OLEKSANDR Jolley Therapist: Name: Magda Sanchez Date of Appointment: Jul 22, 2017 Time of Appointment: 4:00pm Appointment Notes: please arrive 15 mins early to complete paperwork! Airline Customer Service Agent: Name: None Visit Code E&M Code: 40788 Inventory Assets Strengths: Stable living situation, significant other, full-time job, no hx of substance abuse, no hx of suicide attempt Needs: No psychiatrist, no current therapist Risk Factors Assessment : Yes /single/: No Higher / Fall in social status: No Health problems: No Mental Health Diagnoses: Yes Substance use disorders: No Previous attempt: No Previous attempt;highly lethal: No Previous attempt; planned: No Previous attempt; didn't tell: No Family history of suicide: No Previous psychiatric stay: No Hopelessness: No Smoker: No Protective Factors Assessment Hinduism beliefs: No : No Responsible for young children: No Employed: Yes Stable relationships: Yes Data Vital Signs Last 24 Hrs: Date Time Temp Pulse Resp B/P (MAP) Pulse Ox O2 Delivery O2 Flow Rate FiO2 07/20/17 07:10 36.9 70 16 104/63 105 108/67 Meds Administered Last 24 Hrs: Meds Administered (Past 24Hrs) Medications (Trade) Dose Ordered Sig/Jacob Route Start Time Stop Time Status Last Admin Dose Admin Trazodone HCl (Desyrel Tab) 50 mg HS PO 07/18/17 22:00 08/17/17 21:59 07/19/17 23:06 50 MG Venlafaxine HCl (effeXOR EXTENDED REL CAP) 75 mg QAM PO 07/19/17 09:00 08/18/17 08:59 07/20/17 08:48 75 MG Fluoxetine HCl (Prozac Cap) 20 mg QAM PO 07/19/17 09:00 08/18/17 08:59 07/20/17 08:48 20 MG Vitamin B Complex (Vitamin B Complex) 1 tab DAILY PO 07/19/17 09:00 08/18/17 08:59 07/20/17 08:48 1 TAB Pantoprazole Sodium (Protonix Tab) 40 mg QAM PO 07/19/17 09:00 08/18/17 08:59 07/20/17 08:48 40 MG Oxycodone HCl (Roxicodone Immediate Rel Tab) 5 mg NOW ONCE PO 07/19/17 00:30 07/19/17 00:31 DC 07/19/17 00:50 5 MG Oxycodone HCl (Roxicodone Immediate Rel Tab) 5 mg NOW ONCE PO 07/19/17 13:30 07/19/17 13:31 DC 07/19/17 13:24 5 MG Ibuprofen (Motrin Tab) 600 mg Q6 PRN PO 07/19/17 17:15 08/18/17 17:14 07/20/17 15:53 600 MG Ethinyl Estradiol/ Levonorgestrel (Seasonique 0.15-0.03 &0.01 Mg) 1 tab QPM PO 07/19/17 21:00 08/18/17 20:59 07/19/17 21:54 1 TAB
[2017-07-20] MEDS: [UNRECOGNIZED DRUG - OTHER] PO SCH (21:32)
[2017-07-20] MEDS: TRAZODONE HCL 50 MG TAB PO SCH (23:10)
[2017-07-21 07:16] VITALS: BP_SYST 101; BP_SYST 105; BP_DIAS 63; BP_DIAS 70; PULSE 70; PULSE 85; TEMP 36.8
[2017-07-21] MEDS: FLUOXETINE HCL 20 MG CAP PO SCH (08:30)
[2017-07-21] MEDS: VENLAFAXINE HCL XR 75 MG CAPXR PO SCH (08:30)
[2017-07-21] MEDS: PANTOprazole SOD 40 MG TAB PO SCH (08:30)
[2017-07-21] MEDS: VITAMIN B COMPLEX TAB PO SCH (08:31)
[2017-07-21] MEDS: IBUPROFEN 600 MG TAB PO PRN (10:09)
--- NOTE | 2017-07-21 10:34 | Discharge Instructions ---
Discharge Information Report Includes Report will include the: Discharge Instructions & Summary Admission Admission Date / Time: Jul 18, 2017 at 01:07 Reason for Admission: Major Depressive D/O Discharge Discharge Diagnosis / Problem: Major depressive disorder Condition at Discharge: Good Discharge Goals Goal(s): Improve function Activity Recommendations Activity Limitations: resume your previous activity . Instructions / Follow-Up Instructions / Follow-Up . SPECIAL CARE INSTRUCTIONS: 1. Follow through with your scheduled aftercare appointments. If unable to keep an appointment, please call to reschedule. 2. Take your medication only as prescribed. Medication should not be changed or stopped without the approval of your doctor. In the event of worsening symptoms or concerns about side effects, contact your doctor immediately. 3. Utilize new healthy coping skills, anger management skills, and stress management skills learned during your hospitalization. Journal feelings and process them with a support person. Identify stressors or situations that may result in relapse, deterioration or inappropriate behaviors and develop a plan to deal with those issues. 4. If your coping skills are ineffective and you are in crisis, contact your outpatient providers for direction. If unable to reach your providers, please call the CAN HELP LINE AT or go to the closest Emergency Room. 5. Avoid alcohol and un-prescribed drugs. 6. You have been provided with the Mental Health Advance Directives Pamphlet for your review. AFTERCARE APPOINTMENTS: * Please call your insurance company prior to your scheduled appointment to confirm your aftercare providers are covered. Take your insurance information to your appointments. . Discharge / Aftercare Planning Primary Care Physician: Name: [facility] Date of Appointment: Jul 26, 2017 Time of Appointment: 12:15 pm Psychiatrist: Name: [facility] Date of Appointment: Sep 02, 2017 Time of Appointment: 1:00 pm Appointment Notes: Evaluation with OLEKSANDR Jolley Therapist: Name Of Therapist: Magda Sanchez Date of Appointment: Jul 22, 2017 Time of Appointment: 4:00pm Appointment Comments: please arrive 15 mins early to complete paperwork! Railway Station Manager: Name: None . Follow-Up Care Plan for Follow-Up Care: Follow up with Laura in [place] for therapy on 07/22/17 at 4:00pm and [facility] for psychiatrist on 09/02/2017 at 1:00pm. Current Hospital Diet Patient's current hospital diet: Regular Diet Discharge Diet Recommended Diet: Regular Diet Procedures Procedures Performed: No Pending Studies Pending Studies at Discharge: No Medical Emergencies . Who to Call and When: Medical Emergencies: For questions or emergencies related to your hospital stay, please contact the Inpatient Behavioral Health Unit at [phone]. A psychiatric nursing aide is on-call 04/03 for the Behavioral Health Unit for emergencies At any time you feel your situation is an emergency, you may also call 911 immediately. . Non-Emergent Contact Non-Emergency issues call your: Primary Care Provider ([facility] at [phone]) [phone] Advance Directives Do You Have an Existing Mental: No Existing Living Will: No Existing Power of Steam And Power Superintendent: No Advance Directives Info Given: To Pt/S.O. Advance Directives Reason: Declines as Mental Health Visit. Discharge Summary Admission HPI Per the Admitting provider: Brenna is a 22 year-old female with a history of major depressive disorder with SIB and generalized anxiety disorder who presented to the ED yesterday (07/17) after taking 11 500 mg Tylenol. Her roommate/good friend brought her in. She said that she took the Tylenol to "numb my pain" and that she "just wanted to sleep" but did not have any intent to kill herself. She states that she has been worried about finances, specifically paying rent and student loans, and that she has felt like she is a burden to her boyfriend and is "inadequate." She also feels distant from her family, who live in [facility] [place] and who she has not seen in about a year. 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 Brenna said that she thinks of these things seemed to pile on yesterday which led to her taking the Tylenol (which she now feels was reckless and impulsive"). She has had thoughts of suicide for several years intermittently, wondering what would happen if she "wasn't here anymore," but she has never had a plan or intent to follow through with this. She was officially diagnosed with depression by her PCP in August 2016 and was started on sertraline at that time. She is now on Effexor 150 mg after several failed trials of SSRIs (see above). Brenna also has a history of SIB, involving cutting her wrists and/or upper thighs , that began when she was younger but has gotten progressively more frequent over the last three years, from every few months to every few weeks. The last time she cut was 07/15. Patient says she feels the urge to cut whenever she gets stressed but never has intended to commit suicide or hurt herself by doing this. Patient states that today her mood is "ok" and is "6/10". She denies thoughts of suicide or HI. She feels somewhat anxious and attributes this to missing work while she is in the hospital. Her appetite has been "good", and she ate all of her breakfast this morning. No change in weight. Concentration has been "ok" and is "worse when I'm tired or anxious at work". SLeep has been "ok"; she was prescribed trazadone 50 mg by her PCP and uses it almost every night, which has helped. She gets 8-10 hours of sleep a night and wakes up 1-2 times "on a good night." Recently she has felt much mroe tired and has gone to bed after work almost immediately. She has not seen her friends as often as she usually does because of this. She has had headaches almost every day, including today's which is "7/10". Her PCP gave her a prescription for Fioricet for these, though she does not have an official diagnosis of migraines. She feels dizzy and nauseated when she has a headache. Denies racing thoughts/euphoria, hallucinations, SI/HI. Denies shortness of breath, vomiting, numbness/tingling, pain. Hospital Course (1) Major depressive disorder, recurrent episode, severe with anxious distress 07/18 - Taper Effexor to 75 mg starting tomorrow and continue taper as tolerated - Start Prozac 20 mg today increasing as tolerated - Assist the patient to learn and utilize healthy coping strategies to reduce reliance on cutting - Encourage participation in group and individual counseling - Every 15 minute checks for safety - Family meeting as indicated - Will need psychiatric follow-up for both medications and therapy 07/19 - Continue current meds - Focus on safety plan for immediate future - Will need providers in the [place] area 07/21 -Patient had signed a 72 hour notice to withdraw from care which was nearing its end. Patient assessed to be safe and appropriate for discharge and no thoughts present to harm self or others. -Discontinued Effexor XR 75 daily and remains on Prozac 20mg daily which she is tolerating well. - Follow up arranged at [facility] for therapy on 07/22/17 at 4:00pm and [facility] for psychiatric care on 09/02/2017. Risk Factors Assessment : Yes /single/: No Higher / Fall in social status: No Health problems: No Mental Health Diagnoses: Yes Substance use disorders: No Previous attempt: No Previous attempt;highly lethal: No Previous attempt; planned: No Previous attempt; didn't tell: No Family history of suicide: No Previous psychiatric stay: No Hopelessness: No Smoker: No Protective Factors Assessment Restorationist beliefs: No : No Responsible for young children: No Employed: Yes Stable relationships: Yes Day of Discharge Assessment Patient had signed a 72 hour notice to withdraw from care which was nearing its end. Patient assessed to be safe and appropriate for discharge and no thoughts present to harm self or others. Discontinued Effexor XR 75 daily and remains on Prozac 20mg daily which she is tolerating well. Follow up arranged at [facility] for therapy on 07/22/17 at 4:00pm and [facility] for psychiatric care on . Laboratory Test 07/17/17 23:10 07/17/17 23:23 07/18/17 08:56 07/19/17 11:35 Urine Color YELLOW Urine Appearance CLEAR Urine pH 7.0 Urine Specific [place] 1.027 Urine Protein NEG Urine Glucose (UA) NEG Urine Ketones NEG Urine Occult Blood NEG Urine Nitrite NEG Urine Bilirubin NEG Urine Urobilinogen NEG Urine Leukocyte Esterase NEG Urine Test NEG Urine Butalbital Level 2440 Urine Opiates Screen NEG Urine Methadone, Qualitative NEG Urine Barbiturates POS Urine Phencyclidine (PCP) Level NEG Ur Amphetamine/Methamphetamine NEG MDMA (Ecstasy) Screen NEG Urine Amobarbital Level NEGATIVE Urine Pentobarbital Level NEGATIVE Urine Phenobarbital Level NEGATIVE Urine Secobarbital Level NEGATIVE Urine Benzodiazepines Screen NEG Urine Cocaine Metabolite NEG Urine Marijuana (THC) NEG White Blood Count 5.71 Red Blood Count 4.31 Hemoglobin 13.1 Hematocrit 39.2 Mean Corpuscular Volume 91.0 Mean Corpuscular Hemoglobin 30.4 Mean Corpuscular Hemoglobin Concent 33.4 RDW Standard Deviation 42.9 RDW Coefficient of Variation 12.9 Platelet Count 306 Mean Platelet Volume 9.2 Sodium Level 139 Potassium Level 3.5 Chloride Level 107 Carbon Dioxide Level 25 Anion Gap 7.0 Blood Urea Nitrogen 10 Creatinine 0.94 Est Creatinine Clear Calc Drug Dose 97.3 Estimated GFR () 99.1 Estimated GFR (Non- 85.5 BUN/Creatinine Ratio 10.8 Random Glucose 81 Calcium Level 8.1 Total Bilirubin 0.2 0.3 Direct Bilirubin < 0.1 < 0.1 Aspartate Amino Transferase (AST) 17 14 Alanine Aminotransferase (ALT) 15 16 Alkaline Phosphatase 48 43 Total Protein 7.4 7.4 Albumin 3.9 3.7 Thyroid Stimulating Hormone (TSH) 3.090 Salicylates Level < 1.7 Acetaminophen Level 4 < 2 Ethyl Alcohol mg/dL < 3.0 Total Time Total Time Spent (min): Less than 30 minutes Tobacco Cessation at Discharge Smoking Status: Never Smoker FDA approved Prescription: non-smoker
[2017-07-21] MEDS ORDERED: DSY50 PO (10:40)
[2017-07-21] MEDS ORDERED: FLUO20CA36 PO (10:40)
== END 2017-07-21 11:31 | disposition home or self-care (01) | DRG 885 ==
LOC: C.EDA 22:53 → C.MHU 07-18 01:07 → ENRESERV 07-18 01:48 → C.MHU 07-19 13:07
PROVIDERS: ADMIT Psychiatry & Neurology Child & Adolescent Psychiatry; ATTEND Psychiatry & Neurology Child & Adolescent Psychiatry
DX: F33.2 Major depressive disorder, recurrent severe without psychotic features (principal); K31.5 Obstruction of duodenum; F41.9 Anxiety disorder, unspecified; T39.1X2A Poisoning by 4-Aminophenol derivatives, intentional self-harm, initial encounter; R51 Headache; Z91.5 Personal history of self-harm; Z79.3 Long term (current) use of hormonal contraceptives; Z79.899 Other long term (current) drug therapy; Z81.8 Family history of other mental and behavioral disorders